=== PATIENT | male | born 1965 | race African-American/Black ===

== ENCOUNTER 2017-01-28 17:25 | Emergency (ER) | payer MEDICAID, OTHER ==
[~2017-01-28] VITALS: Ht 182.9 cm; Wt 104.5 kg
[2017-01-28 17:36] VITALS: BP 134/94
== END 2017-01-28 18:00 | disposition home or self-care (01) ==
LOC: EMS 17:37
DX: Z02.89 Encounter for other administrative examinations (principal); R07.9 Chest pain, unspecified
CPT/HCPCS: 93005; 99283

== ENCOUNTER 2017-12-18 13:30 | Inpatient (IN) | payer OTHER ==
[~2017-12-18] VITALS: Ht 195.6 cm; Wt 106.5 kg
[2017-12-18] MEDS ORDERED: CeFAZolin 1 GM/DEXTROSE 50 ML IV ONE (14:45)
[2017-12-18] MEDS ORDERED: SODIUM CHLORIDE 0.9% 1,000 ML IV ONE (14:45)
[2017-12-18 15:32] LABS: ANION GAP 7 mmol/L (8-16); CALCIUM, TOTAL 8.9 mg/dL (8.8-10.5); CARBON DIOXIDE 28 mmol/L (22-29); CHLORIDE 103 mmol/L (98-107); CREATININE 0.99 mg/dL (0.60-1.30); GLOMERULAR FILTR. RATE CALC > 60 mL/min (>60); GLUCOSE,RANDOM 87 mg/dL (70-110); POTASSIUM 3.9 mmol/L (3.5-5.1); SODIUM SERUM 138 mmol/L (136-145); UREA NITROGEN, BLOOD 9 mg/dL (7-18)
[2017-12-18 15:34] LABS: BASOPHILS % (AUTO) 0.4 % (0.0-2.0); EOSINOPHILS % (AUTO) 2.2 % (1.0-6.0); HEMATOCRIT 40.9 % (41-53); HEMOGLOBIN 13.7 g/dL (13.5-17.5); LYMPHOCYTES # (AUTO) 0.9 K/uL (1.0-4.8); LYMPHOCYTES % (AUTO) 19.8 % (22.0-44.0); MEAN CORPUSCULAR HEMOGLOBIN 29.5 pg (26.0-34.0); MEAN CORPUSCULAR HGB CONC 33.4 G/dL (31.0-37.0); MEAN CORPUSCULAR VOLUME 88 fL (80-100); MONOCYTES # (AUTO) 0.2 K/uL (0.1-1.0); MONOCYTES % (AUTO) 5.4 % (2.0-9.0); NEUTROPHILS # (AUTO) 3.1 K/uL (1.8-7.7); NEUTROPHILS % (AUTO) 72.2 % (40.0-70.0); PLATELET COUNT (AUTO) 196 K/uL (150-450); RED BLOOD CELL COUNT(AUTO) 4.63 MIL/uL (4.50-5.90); RED CELL DISTRIBUTION WIDTH 14.5 % (11.5-14.5)
[2017-12-18 15:38] LABS: ALANINE AMINOTRANSFERASE 23 U/L (12-78); ALBUMIN 3.3 g/dL (3.4-5.0); ALKALINE PHOSPHATASE 80 U/L (46-116); ASPARTATE AMINOTRANSFERASE 17 U/L (15-37); BILIRUBIN,TOTAL 0.2 mg/dL (0.1-1.0); TOTAL PROTEIN, SERUM 7.1 g/dL (6.4-8.2)
[2017-12-18 15:43] LABS: LACTIC ACID 1.6 mmol/L (0.4-2.0)
[2017-12-18] MEDS ORDERED: ONDANSETRON HCL 4 MG/2 ML VIAL IVP PRN (16:15)
[2017-12-18] MEDS ORDERED: ACETAMINOPHEN 325 MG TABLET PO PRN (16:15)
[2017-12-18] MEDS ORDERED: 0.9% SODIUM CHLORIDE 10 ML SYRINGE IVP PRN (16:15)
[2017-12-18 19:04] VITALS: BP 127/71
[2017-12-19] VITALS (7 sets, daily range): BP systolic 118–148; BP diastolic 63–96
[2017-12-19 06:36] LABS: BASOPHILS % (AUTO) 0.3 % (0.0-2.0); EOSINOPHILS % (AUTO) 4.5 % (1.0-6.0); HEMATOCRIT 39.3 % (41-53); HEMOGLOBIN 13.4 g/dL (13.5-17.5); LYMPHOCYTES # (AUTO) 1.1 K/uL (1.0-4.8); LYMPHOCYTES % (AUTO) 28.8 % (22.0-44.0); MEAN CORPUSCULAR HEMOGLOBIN 29.7 pg (26.0-34.0); MEAN CORPUSCULAR HGB CONC 34.1 G/dL (31.0-37.0); MEAN CORPUSCULAR VOLUME 87 fL (80-100); MONOCYTES # (AUTO) 0.4 K/uL (0.1-1.0); MONOCYTES % (AUTO) 9.8 % (2.0-9.0); NEUTROPHILS # (AUTO) 2.1 K/uL (1.8-7.7); NEUTROPHILS % (AUTO) 56.6 % (40.0-70.0); PLATELET COUNT (AUTO) 189 K/uL (150-450); RED BLOOD CELL COUNT(AUTO) 4.51 MIL/uL (4.50-5.90)
[2017-12-19 06:51] LABS: ALANINE AMINOTRANSFERASE 24 U/L (12-78); ALBUMIN 2.9 g/dL (3.4-5.0); ALKALINE PHOSPHATASE 60 U/L (46-116); ANION GAP 7 mmol/L (8-16); ASPARTATE AMINOTRANSFERASE 16 U/L (15-37); BILIRUBIN,TOTAL 0.2 mg/dL (0.1-1.0); CALCIUM, TOTAL 8.6 mg/dL (8.8-10.5); CARBON DIOXIDE 28 mmol/L (22-29); CHLORIDE 105 mmol/L (98-107); CREATININE 0.94 mg/dL (0.60-1.30); GLOMERULAR FILTR. RATE CALC > 60 mL/min (>60); GLUCOSE,RANDOM 93 mg/dL (70-110); POTASSIUM 3.6 mmol/L (3.5-5.1); SODIUM SERUM 140 mmol/L (136-145); TOTAL PROTEIN, SERUM 6.2 g/dL (6.4-8.2); UREA NITROGEN, BLOOD 12 mg/dL (7-18)
[2017-12-19] MEDS ORDERED: ACETAMINOPHEN 325 MG TABLET PO PRN (08:00)
[2017-12-19] MEDS ORDERED: BISACODYL 10 MG RECTAL RECTAL SUPPOSITORY PR PRN (08:00)
[2017-12-19] MEDS ORDERED: ONDANSETRON HCL 4 MG/2 ML VIAL IVP PRN (08:00)
[2017-12-19] MEDS ORDERED: HYDROCODONE/ACETAMINOPHEN 5-325 MG TABLET PO PRN ×2 (08:00)
[2017-12-19] MEDS: ENOXAPARIN SODIUM 40 MG/0.4 ML PF SYRINGE SQ SCH (08:21)
[2017-12-19] MEDS: MORPHINE SULFATE 4 MG/ML SYRINGE IVP PRN ×2 (08:21→17:33)
[2017-12-19] MEDS ORDERED: SESTAMIBI TC99M/UD ISOTOPE 1 EA INJ INJ ONE (09:55)
[2017-12-19] MEDS ORDERED: SODIUM CHLORIDE 0.9% 250 ML IV ONE (10:03)
[2017-12-19] MEDS: CLINDAMYCIN 900 MG/D5% WATER 50 ML IV SCH ×3 (10:06→17:50)
[2017-12-19 10:25] LABS: BASOPHILS % (AUTO) 0.1 % (0.0-2.0); EOSINOPHILS % (AUTO) 3.5 % (1.0-6.0); HEMATOCRIT 40.9 % (41-53); HEMOGLOBIN 13.6 g/dL (13.5-17.5); LYMPHOCYTES # (AUTO) 0.8 K/uL (1.0-4.8); LYMPHOCYTES % (AUTO) 19.4 % (22.0-44.0); MEAN CORPUSCULAR HEMOGLOBIN 29.3 pg (26.0-34.0); MEAN CORPUSCULAR HGB CONC 33.3 G/dL (31.0-37.0); MEAN CORPUSCULAR VOLUME 88 fL (80-100); MONOCYTES # (AUTO) 0.4 K/uL (0.1-1.0); MONOCYTES % (AUTO) 10.6 % (2.0-9.0); NEUTROPHILS # (AUTO) 2.7 K/uL (1.8-7.7); NEUTROPHILS % (AUTO) 66.4 % (40.0-70.0); PLATELET COUNT (AUTO) 215 K/uL (150-450); RED BLOOD CELL COUNT(AUTO) 4.64 MIL/uL (4.50-5.90); RED CELL DISTRIBUTION WIDTH 14.3 % (11.5-14.5)
[2017-12-19 10:38] LABS: ANION GAP 7 mmol/L (8-16); CARBON DIOXIDE 29 mmol/L (22-29); CHLORIDE 105 mmol/L (98-107); CHOL/HDL RATIO 2.1 (4.2-7.3); CHOLESTEROL 141 mg/dL (131-200); CREATININE 1.08 mg/dL (0.60-1.30); GLOMERULAR FILTR. RATE CALC > 60 mL/min (>60); GLUCOSE,RANDOM 75 mg/dL (70-110); HDL CHOLESTEROL 66 mg/dL (40-60); LDL CHOL (CALC.) 54 mg/dL (0-130); POTASSIUM 3.9 mmol/L (3.5-5.1); SODIUM SERUM 141 mmol/L (136-145); TRIGLYCERIDES 105 mg/dL (15-150); UREA NITROGEN, BLOOD 12 mg/dL (7-18)
[2017-12-19] MEDS: AmLODIPine BESYLATE 5 MG TABLET PO SCH (14:05)
[2017-12-19] MEDS: CLINDAMYCIN PHOS 1% 30 GM GEL TP SCH ×2 (14:06→21:25)
[2017-12-20] MEDS: CLINDAMYCIN 900 MG/D5% WATER 50 ML IV SCH ×2 (00:29→08:12)
[2017-12-20 04:27] VITALS: BP 138/88
[2017-12-20] MEDS ORDERED: AMLO-511 PO ×5 (05:12→05:35)
[2017-12-20] MEDS ORDERED: CLIN300C3 PO ×3 (05:15→13:48)
[2017-12-20] MEDS ORDERED: MUPI15CR TP ×2 (05:18→05:27)
[2017-12-20] MEDS ORDERED: HYDR-309 PO ×2 (05:21→05:25)
[2017-12-20 07:48] VITALS: BP 126/83
[2017-12-20] MEDS: MORPHINE SULFATE 4 MG/ML SYRINGE IVP PRN (08:11)
[2017-12-20] MEDS: CLINDAMYCIN PHOS 1% 30 GM GEL TP SCH (09:10)
[2017-12-20] MEDS: ENOXAPARIN SODIUM 40 MG/0.4 ML PF SYRINGE SQ SCH (09:10)
[2017-12-20 09:30] VITALS: BP 114/80
[2017-12-20] MEDS ORDERED: SESTAMIBI TC99M/UD ISOTOPE 1 EA INJ INJ ONE (10:15)
[2017-12-20 10:21] VITALS: BP 138/87
[2017-12-20] MEDS ORDERED: REGADENOSON 0.4 MG/5 ML PF SYRINGE IVP ONE ×2 (10:21→14:14)
[2017-12-20] MEDS: AmLODIPine BESYLATE 5 MG TABLET PO SCH (11:23)
[2017-12-20 11:34] VITALS: BP 143/77
[2017-12-20] MEDS ORDERED: [UNRECOGNIZED DRUG - CODE] TP (13:56)
== END 2017-12-20 14:15 | disposition home or self-care (01) | DRG 383 ==
LOC: EMS 13:31 → 5N 17:58 → 5S 12-19 18:48
PROVIDERS: ADMIT Internal Medicine; ATTEND Internal Medicine
DX: L03.113 Cellulitis of right upper limb (principal); I11.0 Hypertensive heart disease with heart failure; R07.89 Other chest pain; Z83.3 Family history of diabetes mellitus; Z82.49 Family history of ischemic heart disease and other diseases of the circulatory system; Z59.0 Homelessness; S61.431A Puncture wound without foreign body of right hand, initial encounter; X58.XXXA Exposure to other specified factors, initial encounter; Y92.89 Other specified places as the place of occurrence of the external cause; Y99.0 Civilian activity done for income or pay
CPT/HCPCS: 78452; 83605; 93005; 93017; 96365; 96366; 99285; A9500; J0690; J1650; J2270; J2785; J3490; J7030; J7050

== ENCOUNTER 2017-12-23 04:16 | Emergency (ER) | payer OTHER ==
[~2017-12-23] VITALS: Ht 185.4 cm; Wt 100.0 kg
[~2017-12-23 04:16] MED LIST: AMLO-511 PO; CLIN300C3 PO; HYDR-309 PO; MUPI15CR TP; [UNRECOGNIZED DRUG - CODE] TP
[2017-12-23 04:20] VITALS: BP 155/104
[2017-12-23] MEDS ORDERED: HYDR-4061 PO (04:31)
== END 2017-12-23 06:31 | disposition left against medical advice (07) ==
LOC: EMS 04:16
DX: Z53.21 Procedure and treatment not carried out due to patient leaving prior to being seen by health care provider (principal)

== ENCOUNTER 2018-05-08 17:56 | Inpatient (IN) | payer MEDICAID, OTHER ==
[~2018-05-08] VITALS: Ht 185.4 cm; Wt 104.0 kg
[~2018-05-08 17:56] MED LIST changes: -HYDR-309 PO; +HYDR-4061 PO; -MUPI15CR TP
[2018-05-08] MEDS ORDERED: DiphenhydrAMINE HCL 50 MG/ML VIAL IM ONE (18:00)
[2018-05-08] MEDS ORDERED: HALOPERIDOL LACTATE 5 MG/ML VIAL IM ONE (18:00)
[2018-05-08] MEDS ORDERED: LORazepam 2 MG/ML VIAL IM ONE (18:00)
[2018-05-08 21:34] LABS: BASOPHILS % (AUTO) 0.8 % (0.0-2.0); EOSINOPHILS % (AUTO) 5.3 % (1.0-6.0); HEMATOCRIT 39.5 % (41-53); HEMOGLOBIN 13.1 g/dL (13.5-17.5); LYMPHOCYTES # (AUTO) 1.9 K/uL (1.0-4.8); LYMPHOCYTES % (AUTO) 46.6 % (22.0-44.0); MEAN CORPUSCULAR HEMOGLOBIN 28.8 pg (26.0-34.0); MEAN CORPUSCULAR HGB CONC 33.1 G/dL (31.0-37.0); MEAN CORPUSCULAR VOLUME 87 fL (80-100); MONOCYTES # (AUTO) 0.3 K/uL (0.1-1.0); MONOCYTES % (AUTO) 7.2 % (2.0-9.0); NEUTROPHILS # (AUTO) 1.6 K/uL (1.8-7.7); NEUTROPHILS % (AUTO) 40.1 % (40.0-70.0); PLATELET COUNT (AUTO) 184 K/uL (150-450); RED BLOOD CELL COUNT(AUTO) 4.53 MIL/uL (4.50-5.90); RED CELL DISTRIBUTION WIDTH 14.4 % (11.5-14.5)
[2018-05-08 21:53] LABS: ANION GAP 13 mmol/L (8-16); CALCIUM, TOTAL 8.1 mg/dL (8.8-10.5); CARBON DIOXIDE 24 mmol/L (22-29); CHLORIDE 107 mmol/L (98-107); CREATININE 1.02 mg/dL (0.60-1.30); GLOMERULAR FILTR. RATE CALC > 60 mL/min (>60); GLUCOSE,RANDOM 103 mg/dL (70-110); POTASSIUM 3.3 mmol/L (3.5-5.1); SODIUM SERUM 144 mmol/L (136-145); UREA NITROGEN, BLOOD 19 mg/dL (7-18)
[2018-05-08 21:55] LABS: ALANINE AMINOTRANSFERASE 33 U/L (12-78); ALBUMIN 3.3 g/dL (3.4-5.0); ALKALINE PHOSPHATASE 68 U/L (46-116); ASPARTATE AMINOTRANSFERASE 33 U/L (15-37); BILIRUBIN,TOTAL 0.2 mg/dL (0.1-1.0); TOTAL PROTEIN, SERUM 6.5 g/dL (6.4-8.2)
[2018-05-09] MEDS ORDERED: HALOPERIDOL 5 MG TABLET PO PRN
[2018-05-09 03:26] VITALS: BP 145/62
[2018-05-09] MEDS ORDERED: PNEUMOCOCCAL VACCINE POLYVALENT 0.5 ML VIAL [PPSV23] IM ONE (03:30)
[2018-05-09 07:18] LABS: HEMOGLOBIN A1C 5.4 % (4.5-6.2)
[2018-05-09 07:26] LABS: CHOL/HDL RATIO 1.7 (4.2-7.3); FREE T4 (FREE THYROXINE) 0.94 ng/dL (0.76-1.46); THYROID STIMULATING HORMONE 0.75 uIU/mL (0.36-3.74)
[2018-05-09] MEDS ORDERED: POTASSIUM CHLORIDE 20 MEQ ER TABLET PO ONE (12:15)
[2018-05-09] MEDS ORDERED: BACITRACIN 28.4 GM OINTMENT TP PRN (12:30)
[2018-05-09] MEDS ORDERED: ONDANSETRON HCL 4 MG TABLET PO PRN (12:30)
[2018-05-09] MEDS ORDERED: IBUPROFEN 600 MG TABLET PO PRN (12:30)
[2018-05-09] MEDS ORDERED: ACETAMINOPHEN 325 MG TABLET PO PRN (12:30)
[2018-05-09] MEDS ORDERED: MAGNESIUM HYDROXIDE SUSPENSION 30 ML UDCUP PO PRN (12:30)
[2018-05-09] MEDS ORDERED: CloNIDine HCL 0.1 MG TABLET PO PRN (12:30)
[2018-05-09] MEDS ORDERED: ALBUTEROL SULFATE HFA 90 MCG/PUFF 8 GM INHALER IH PRN (12:30)
[2018-05-09] MEDS ORDERED: LOPERAMIDE HCL 2 MG CAPSULE PO PRN (12:30)
[2018-05-09] MEDS ORDERED: BENZOCAINE/MENTHOL LOZENGE MM PRN (12:30)
[2018-05-09] MEDS ORDERED: PETROLATUM,WHITE 71 GM JELLY TP PRN (12:30)
[2018-05-09] MEDS ORDERED: MAG HYDROX/AL HYDROX/SIMETH ES 30 ML SUSPENSION UDCUP PO PRN (12:30)
[2018-05-09] MEDS: LORazepam 2 MG TABLET PO PRN (13:31)
[2018-05-09 14:04] VITALS: BP 130/76
[2018-05-09] MEDS: PARoxetine HCL 10 MG TABLET PO SCH (15:03)
[2018-05-09] MEDS: ZOLPIDEM TARTRATE 10 MG TABLET PO PRN (21:17)
[2018-05-10] MEDS: PARoxetine HCL 10 MG TABLET PO SCH (09:13)
[2018-05-10] MEDS: OMEPRAZOLE 20 MG CAPSULE PO SCH (09:13)
[2018-05-10] MEDS: ASPIRIN 81 MG EC TABLET PO SCH (09:13)
[2018-05-10] MEDS: AmLODIPine BESYLATE 5 MG TABLET PO SCH (09:13)
[2018-05-10 13:29] VITALS: BP 128/68
[2018-05-10] MEDS: LORazepam 2 MG TABLET PO PRN (18:39)
[2018-05-10] MEDS: ZOLPIDEM TARTRATE 10 MG TABLET PO PRN (22:03)
[2018-05-10 22:22] VITALS: BP 151/81
[2018-05-11] MEDS: ASPIRIN 81 MG EC TABLET PO SCH (08:26)
[2018-05-11] MEDS: PARoxetine HCL 10 MG TABLET PO SCH (08:27)
[2018-05-11] MEDS: AmLODIPine BESYLATE 5 MG TABLET PO SCH (08:27)
[2018-05-11] MEDS: OMEPRAZOLE 20 MG CAPSULE PO SCH (08:27)
[2018-05-11] MEDS: LORazepam 2 MG TABLET PO PRN (08:31)
[2018-05-11 08:42] VITALS: BP 145/80
[2018-05-11] MEDS ORDERED: PARO10TA89 PO (10:47)
[2018-05-11] MEDS ORDERED: ASPI-1182 PO (10:47)
[2018-05-11] MEDS ORDERED: OMEP20 PO (10:48)
== END 2018-05-11 13:20 | disposition home or self-care (01) | DRG 751 ==
LOC: EMS 17:57 → 3EI 23:30
PROVIDERS: ADMIT Psychiatry & Neurology Child & Adolescent Psychiatry; ATTEND Psychiatry & Neurology Child & Adolescent Psychiatry
DX: F33.2 Major depressive disorder, recurrent severe without psychotic features (principal); E83.51 Hypocalcemia; R45.851 Suicidal ideations; E87.6 Hypokalemia; F10.129 Alcohol abuse with intoxication, unspecified; F41.9 Anxiety disorder, unspecified; G47.00 Insomnia, unspecified; I10 Essential (primary) hypertension; K21.9 Gastro-esophageal reflux disease without esophagitis; Z59.0 Homelessness; Z83.3 Family history of diabetes mellitus; Z91.5 Personal history of self-harm; Z79.899 Other long term (current) drug therapy; Y90.6 Blood alcohol level of 120-199 mg/100 ml
CPT/HCPCS: 83036; 84132; 84439; 84443; 96372; 99285; G0480; J1200; J1630; J2060

== ENCOUNTER 2018-06-03 22:38 | Inpatient (IN) | payer MEDICAID, OTHER ==
[~2018-06-03] VITALS: Ht 188 cm; Wt 110.0 kg
[~2018-06-03 22:38] MED LIST changes: +ASPI-1182 PO; -CLIN300C3 PO; -HYDR-4061 PO; +OMEP20 PO; +PARO10TA89 PO; -[UNRECOGNIZED DRUG - CODE] TP
[2018-06-03 23:22] LABS: BASOPHILS % (AUTO) 0.9 % (0.0-2.0); HEMATOCRIT 40.6 % (41-53); HEMOGLOBIN 13.5 g/dL (13.5-17.5); LYMPHOCYTES # (AUTO) 1.3 K/uL (1.0-4.8); LYMPHOCYTES % (AUTO) 39.7 % (22.0-44.0); MEAN CORPUSCULAR HEMOGLOBIN 29.4 pg (26.0-34.0); MEAN CORPUSCULAR HGB CONC 33.1 G/dL (31.0-37.0); MEAN CORPUSCULAR VOLUME 89 fL (80-100); MONOCYTES # (AUTO) 0.3 K/uL (0.1-1.0); MONOCYTES % (AUTO) 8.8 % (2.0-9.0); NEUTROPHILS # (AUTO) 1.4 K/uL (1.8-7.7); NEUTROPHILS % (AUTO) 43.6 % (40.0-70.0); PLATELET COUNT (AUTO) 222 K/uL (150-450); RED BLOOD CELL COUNT(AUTO) 4.58 MIL/uL (4.50-5.90); RED CELL DISTRIBUTION WIDTH 14.9 % (11.5-14.5)
[2018-06-03 23:33] LABS: ANION GAP 10 mmol/L (8-16); CALCIUM, TOTAL 8.1 mg/dL (8.8-10.5); CARBON DIOXIDE 26 mmol/L (22-29); CHLORIDE 104 mmol/L (98-107); CREATININE 1.04 mg/dL (0.60-1.30); GLOMERULAR FILTR. RATE CALC > 60 mL/min (>60); GLUCOSE,RANDOM 103 mg/dL (70-110); POTASSIUM 3.7 mmol/L (3.5-5.1); SODIUM SERUM 140 mmol/L (136-145); UREA NITROGEN, BLOOD 13 mg/dL (7-18)
[2018-06-03 23:39] LABS: ALANINE AMINOTRANSFERASE 32 U/L (12-78); ALBUMIN 3.5 g/dL (3.4-5.0); ALKALINE PHOSPHATASE 71 U/L (46-116); ASPARTATE AMINOTRANSFERASE 25 U/L (15-37); BILIRUBIN,TOTAL 0.2 mg/dL (0.1-1.0); TOTAL PROTEIN, SERUM 6.9 g/dL (6.4-8.2)
[2018-06-04] MEDS ORDERED: ZOLPIDEM TARTRATE 10 MG TABLET PO PRN (01:45)
[2018-06-04 01:57] LABS: AMPHET/METH SCREEN,URINE POSITIVE (NEGATIVE); BARBITURATE SCREEN, URINE NEGATIVE (NEGATIVE); BENZODIAZEPINES SCREEN,URINE NEGATIVE (NEGATIVE); CANNABINOID SCREEN,URINE POSITIVE (NEGATIVE); COCAINE SCREEN,URINE NEGATIVE (NEGATIVE); METHADONE SCREEN, URINE NEGATIVE (NEGATIVE); OPIATE SCREEN,URINE NEGATIVE (NEGATIVE)
[2018-06-04 02:06] LABS: PHENCYCLIDINE SCREEN,URINE NEGATIVE (NEGATIVE)
[2018-06-04] MEDS ORDERED: PNEUMOCOCCAL VACCINE POLYVALENT 0.5 ML VIAL [PPSV23] IM ONE (02:45)
[2018-06-04 02:58] VITALS: BP 132/87
[2018-06-04 08:28] VITALS: BP 155/69
[2018-06-04] MEDS: PARoxetine HCL 10 MG TABLET PO SCH (09:47)
[2018-06-04] MEDS: QUEtiapine FUMARATE 25 MG TABLET PO SCH ×2 (09:47→17:14)
[2018-06-04] MEDS ORDERED: PETROLATUM,WHITE 71 GM JELLY TP PRN (18:30)
[2018-06-04] MEDS ORDERED: BENZOCAINE/MENTHOL LOZENGE MM PRN (18:30)
[2018-06-04] MEDS ORDERED: BACITRACIN 28.4 GM OINTMENT TP PRN (18:30)
[2018-06-04] MEDS ORDERED: IBUPROFEN 600 MG TABLET PO PRN (18:30)
[2018-06-04] MEDS ORDERED: MAG HYDROX/AL HYDROX/SIMETH ES 30 ML SUSPENSION UDCUP PO PRN (18:30)
[2018-06-04] MEDS ORDERED: ACETAMINOPHEN 325 MG TABLET PO PRN (18:30)
[2018-06-04] MEDS ORDERED: LOPERAMIDE HCL 2 MG CAPSULE PO PRN (18:30)
[2018-06-04] MEDS ORDERED: DOCUSATE SODIUM 100 MG CAPSULE PO PRN (18:30)
[2018-06-04] MEDS ORDERED: MAGNESIUM HYDROXIDE SUSPENSION 30 ML UDCUP PO PRN (18:30)
[2018-06-04] MEDS ORDERED: ONDANSETRON HCL 4 MG TABLET PO PRN (18:30)
[2018-06-04] MEDS ORDERED: CloNIDine HCL 0.1 MG TABLET PO PRN (18:30)
[2018-06-04] MEDS ORDERED: OMEPRAZOLE 20 MG CAPSULE PO PRN (18:30)
[2018-06-04] MEDS ORDERED: ALBUTEROL SULFATE HFA 90 MCG/PUFF 8 GM INHALER IH PRN (18:30)
[2018-06-04 19:20] VITALS: BP 125/88
[2018-06-05 08:25] VITALS: BP 140/91
[2018-06-05] MEDS: ASPIRIN 81 MG EC TABLET PO SCH (08:31)
[2018-06-05] MEDS: PARoxetine HCL 10 MG TABLET PO SCH (08:31)
[2018-06-05] MEDS: AmLODIPine BESYLATE 5 MG TABLET PO SCH (08:31)
[2018-06-05] MEDS: QUEtiapine FUMARATE 25 MG TABLET PO SCH ×2 (08:32→18:00)
[2018-06-05] MEDS: LORazepam 2 MG TABLET PO PRN (16:30)
[2018-06-05] MEDS: HALOPERIDOL 5 MG TABLET PO PRN (16:30)
[2018-06-05 19:16] VITALS: BP 114/63
[2018-06-06 08:24] VITALS: BP 135/95
[2018-06-06] MEDS: ASPIRIN 81 MG EC TABLET PO SCH (08:52)
[2018-06-06] MEDS: AmLODIPine BESYLATE 5 MG TABLET PO SCH (08:52)
[2018-06-06] MEDS: PARoxetine HCL 10 MG TABLET PO SCH (08:52)
[2018-06-06] MEDS: QUEtiapine FUMARATE 25 MG TABLET PO SCH ×2 (08:52→17:13)
[2018-06-06 16:55] VITALS: BP 126/76
[2018-06-07 08:49] VITALS: BP 139/81
[2018-06-07] MEDS: PARoxetine HCL 10 MG TABLET PO SCH (09:10)
[2018-06-07] MEDS: QUEtiapine FUMARATE 25 MG TABLET PO SCH ×2 (09:10→16:24)
[2018-06-07] MEDS: AmLODIPine BESYLATE 5 MG TABLET PO SCH (09:10)
[2018-06-07] MEDS: ASPIRIN 81 MG EC TABLET PO SCH (09:11)
[2018-06-07] MEDS: ZIPRASIDONE HCL 20 MG CAPSULE PO SCH (16:24)
[2018-06-07 17:43] VITALS: BP 134/67
[2018-06-08] MEDS: ZIPRASIDONE HCL 20 MG CAPSULE PO SCH ×2 (07:08→17:22)
[2018-06-08 08:23] VITALS: BP 107/67
[2018-06-08] MEDS: ASPIRIN 81 MG EC TABLET PO SCH (08:46)
[2018-06-08] MEDS: AmLODIPine BESYLATE 5 MG TABLET PO SCH (08:46)
[2018-06-08] MEDS: PARoxetine HCL 10 MG TABLET PO SCH (08:46)
[2018-06-08] MEDS: QUEtiapine FUMARATE 25 MG TABLET PO SCH ×2 (08:46→17:22)
[2018-06-08 16:12] VITALS: BP 127/84
[2018-06-08] MEDS: LORazepam 2 MG TABLET PO PRN (16:15)
[2018-06-08] MEDS: HALOPERIDOL 5 MG TABLET PO PRN (16:15)
[2018-06-09] MEDS: ZIPRASIDONE HCL 20 MG CAPSULE PO SCH (07:02)
[2018-06-09 08:29] VITALS: BP 121/90
[2018-06-09] MEDS: PARoxetine HCL 10 MG TABLET PO SCH (09:29)
[2018-06-09] MEDS: QUEtiapine FUMARATE 25 MG TABLET PO SCH (09:30)
[2018-06-09] MEDS: ASPIRIN 81 MG EC TABLET PO SCH (09:30)
[2018-06-09] MEDS: AmLODIPine BESYLATE 5 MG TABLET PO SCH (09:30)
[2018-06-09] MEDS ORDERED: QUET25TA PO (13:46)
[2018-06-09] MEDS ORDERED: ZIPR20CA2 PO (13:47)
== END 2018-06-09 15:25 | disposition home or self-care (01) | DRG 754 ==
LOC: EMS 22:39 → 3EC 06-04 01:49
PROVIDERS: ADMIT Psychiatry & Neurology Child & Adolescent Psychiatry; ATTEND Psychiatry & Neurology Child & Adolescent Psychiatry
PROC: 3E02340 Introduction of Influenza Vaccine into Muscle, Percutaneous Approach (ICD-10-PCS; principal; 2018-06-04)
PROC: 3E0234Z Introduction of Serum, Toxoid and Vaccine into Muscle, Percutaneous Approach (ICD-10-PCS; 2018-06-04)
DX: F32.9 Major depressive disorder, single episode, unspecified (principal); E83.51 Hypocalcemia; R45.851 Suicidal ideations; F12.10 Cannabis abuse, uncomplicated; F41.9 Anxiety disorder, unspecified; K21.9 Gastro-esophageal reflux disease without esophagitis; I10 Essential (primary) hypertension; G47.00 Insomnia, unspecified; F17.210 Nicotine dependence, cigarettes, uncomplicated; F10.10 Alcohol abuse, uncomplicated; F15.10 Other stimulant abuse, uncomplicated; Z59.0 Homelessness; Z83.3 Family history of diabetes mellitus; Z79.899 Other long term (current) drug therapy; Z71.6 Tobacco abuse counseling; Z71.51 Drug abuse counseling and surveillance of drug abuser; Z23 Encounter for immunization
CPT/HCPCS: 87081; 90686; 90732; G0480

== ENCOUNTER 2018-07-11 12:21 | Emergency (ER) | payer MEDICAID, OTHER ==
[~2018-07-11] VITALS: Ht 190.5 cm; Wt 109.1 kg
[~2018-07-11 12:21] MED LIST changes: -AMLO-511 PO; -ASPI-1182 PO; -OMEP20 PO
[2018-07-11 14:45] LABS: BASOPHILS % (AUTO) 0.8 % (0.0-2.0); EOSINOPHILS % (AUTO) 7.5 % (1.0-6.0); HEMATOCRIT 41.5 % (41-53); HEMOGLOBIN 13.9 g/dL (13.5-17.5); LYMPHOCYTES % (AUTO) 28.8 % (22.0-44.0); MEAN CORPUSCULAR HEMOGLOBIN 29.8 pg (26.0-34.0); MEAN CORPUSCULAR HGB CONC 33.6 G/dL (31.0-37.0); MEAN CORPUSCULAR VOLUME 89 fL (80-100); MONOCYTES # (AUTO) 0.4 K/uL (0.1-1.0); MONOCYTES % (AUTO) 11.9 % (2.0-9.0); NEUTROPHILS # (AUTO) 1.7 K/uL (1.8-7.7); PLATELET COUNT (AUTO) 208 K/uL (150-450); RED BLOOD CELL COUNT(AUTO) 4.67 MIL/uL (4.50-5.90); RED CELL DISTRIBUTION WIDTH 14.5 % (11.5-14.5)
[2018-07-11 15:00] LABS: ANION GAP 3 mmol/L (8-16); CALCIUM, TOTAL 8.3 mg/dL (8.8-10.5); CARBON DIOXIDE 32 mmol/L (22-29); CHLORIDE 102 mmol/L (98-107); CREATININE 0.92 mg/dL (0.60-1.30); GLOMERULAR FILTR. RATE CALC > 60 mL/min (>60); GLUCOSE,RANDOM 83 mg/dL (70-110); POTASSIUM 4.1 mmol/L (3.5-5.1); SODIUM SERUM 137 mmol/L (136-145); UREA NITROGEN, BLOOD 17 mg/dL (7-18)
[2018-07-11 15:13] LABS: ALANINE AMINOTRANSFERASE 36 U/L (12-78); ALBUMIN 3.4 g/dL (3.4-5.0); ALKALINE PHOSPHATASE 68 U/L (46-116); ASPARTATE AMINOTRANSFERASE 23 U/L (15-37); BILIRUBIN,TOTAL 0.3 mg/dL (0.1-1.0); TOTAL PROTEIN, SERUM 6.6 g/dL (6.4-8.2)
[2018-07-11] MEDS ORDERED: AMOX TR/POT CLAV 875 MG/125 MG TABLET PO ONE (16:00)
[2018-07-11] MEDS ORDERED: SODIUM CHLORIDE 0.9% 1,000 ML IV ONE (16:15)
[2018-07-11] MEDS ORDERED: IOVERSOL 320 MG/ML 100 ML VIAL ONE (17:31)
[2018-07-11] MEDS ORDERED: SODIUM CHLORIDE 0.9% 100 ML ONE (17:31)
[2018-07-11 18:38] VITALS: BP 147/79
[2018-07-15] MEDS ORDERED: ZIPR20CA2 PO (14:01)
[2018-07-15] MEDS ORDERED: AMOX1TAB16 PO (14:02)
[2018-07-15] MEDS ORDERED: FOLI1 PO (14:03)
== END 2018-07-11 20:29 | disposition home or self-care (01) ==
LOC: EMS 12:22
DX: R22.42 Localized swelling, mass and lump, left lower limb (principal); F17.210 Nicotine dependence, cigarettes, uncomplicated; F41.9 Anxiety disorder, unspecified; F32.9 Major depressive disorder, single episode, unspecified; I10 Essential (primary) hypertension; Z59.0 Homelessness
CPT/HCPCS: 36415; 73590; 73701; 80053; 85025; 99285; J7030; J7050; Q9967

== ENCOUNTER 2018-11-03 00:07 | Inpatient (IN) | payer MEDICAID, OTHER ==
[~2018-11-03] VITALS: Ht 185.4 cm; Wt 113.6 kg
[~2018-11-03 00:07] MED LIST changes: +AMOX1TAB16 PO; +FOLI1 PO; +ZIPR20CA2 PO
[2018-11-03 00:29] LABS: GLUCOSE,POINT OF CARE 85 MG/DL (70-110)
[2018-11-03 01:05] LABS: EOSINOPHILS % (AUTO) 8.5 % (1.0-6.0); HEMATOCRIT 40.5 % (41-53); HEMOGLOBIN 13.2 g/dL (13.5-17.5); LYMPHOCYTES # (AUTO) 1.3 K/uL (1.0-4.8); LYMPHOCYTES % (AUTO) 34.6 % (22.0-44.0); MEAN CORPUSCULAR HEMOGLOBIN 28.9 pg (26.0-34.0); MEAN CORPUSCULAR HGB CONC 32.5 G/dL (31.0-37.0); MEAN CORPUSCULAR VOLUME 89 fL (80-100); MONOCYTES # (AUTO) 0.3 K/uL (0.1-1.0); MONOCYTES % (AUTO) 7.3 % (2.0-9.0); NEUTROPHILS # (AUTO) 1.9 K/uL (1.8-7.7); NEUTROPHILS % (AUTO) 48.6 % (40.0-70.0); PLATELET COUNT (AUTO) 202 K/uL (150-450); RED BLOOD CELL COUNT(AUTO) 4.55 MIL/uL (4.50-5.90); RED CELL DISTRIBUTION WIDTH 15.4 % (11.5-14.5)
[2018-11-03 01:17] LABS: ANION GAP 11 mmol/L (8-16); CALCIUM, TOTAL 8.5 mg/dL (8.8-10.5); CARBON DIOXIDE 26 mmol/L (22-29); CHLORIDE 104 mmol/L (98-107); CREATININE 0.94 mg/dL (0.60-1.30); GLOMERULAR FILTR. RATE CALC > 60 mL/min (>60); GLUCOSE,RANDOM 114 mg/dL (70-110); POTASSIUM 3.7 mmol/L (3.5-5.1); SODIUM SERUM 141 mmol/L (136-145); UREA NITROGEN, BLOOD 19 mg/dL (7-18)
[2018-11-03 01:23] LABS: ALANINE AMINOTRANSFERASE 30 U/L (12-78); ALBUMIN 3.4 g/dL (3.4-5.0); ALKALINE PHOSPHATASE 72 U/L (46-116); ASPARTATE AMINOTRANSFERASE 22 U/L (15-37); BILIRUBIN,TOTAL 0.2 mg/dL (0.1-1.0); TOTAL PROTEIN, SERUM 6.5 g/dL (6.4-8.2)
[2018-11-03 03:15] LABS: AMPHET/METH SCREEN,URINE POSITIVE (NEGATIVE); BARBITURATE SCREEN, URINE NEGATIVE (NEGATIVE); BENZODIAZEPINES SCREEN,URINE NEGATIVE (NEGATIVE); CANNABINOID SCREEN,URINE POSITIVE (NEGATIVE); COCAINE SCREEN,URINE NEGATIVE (NEGATIVE); METHADONE SCREEN, URINE NEGATIVE (NEGATIVE); OPIATE SCREEN,URINE NEGATIVE (NEGATIVE); PHENCYCLIDINE SCREEN,URINE NEGATIVE (NEGATIVE)
[2018-11-03] MEDS ORDERED: ZOLPIDEM TARTRATE 10 MG TABLET PO PRN (03:30)
[2018-11-03] MEDS ORDERED: HALOPERIDOL 5 MG TABLET PO PRN (03:30)
[2018-11-03] MEDS ORDERED: LORazepam 2 MG TABLET PO PRN (03:30)
[2018-11-03] MEDS ORDERED: LORazepam 80 MG in DEXTROSE 5%-WATER 40 ML IV PRN (05:15)
[2018-11-03] MEDS ORDERED: ZIPRASIDONE HCL 20 MG CAPSULE PO ONE (05:15)
[2018-11-03] MEDS ORDERED: LORazepam 2 MG/ML VIAL IM ONE ×2 (15:45)
[2018-11-03] MEDS ORDERED: DiphenhydrAMINE HCL 50 MG/ML VIAL IM ONE ×2 (15:45)
[2018-11-03] MEDS ORDERED: HALOPERIDOL LACTATE 5 MG/ML VIAL IM ONE ×2 (15:45)
[2018-11-03] MEDS ORDERED: ACETAMINOPHEN 500 MG TABLET PO ONE (15:45)
[2018-11-03] MEDS ORDERED: -PHARMACY VACCINE NOTE- MISC ONE (17:00)
[2018-11-03 17:03] VITALS: BP 117/84
[2018-11-03] MEDS ORDERED: MAG HYDROX/AL HYDROX/SIMETH ES 30 ML SUSPENSION UDCUP PO PRN (17:15)
[2018-11-03] MEDS ORDERED: ONDANSETRON HCL 4 MG TABLET PO PRN (17:15)
[2018-11-03] MEDS ORDERED: LOPERAMIDE HCL 2 MG CAPSULE PO PRN (17:15)
[2018-11-03] MEDS ORDERED: IBUPROFEN 400 MG TABLET PO PRN (17:15)
[2018-11-03] MEDS ORDERED: MAGNESIUM HYDROXIDE SUSPENSION 30 ML UDCUP PO PRN (17:15)
[2018-11-03] MEDS ORDERED: CloNIDine HCL 0.1 MG TABLET PO PRN (17:15)
[2018-11-03] MEDS ORDERED: NICOTINE 14 MG/24 HOUR PATCH TD PRN (17:15)
[2018-11-03] MEDS ORDERED: PETROLATUM,WHITE 28 GM JELLY TP PRN (17:15)
[2018-11-03] MEDS ORDERED: GuaiFENesin/D-METHORPHAN [SUGAR-FREE] 200-20MG/10 ML SYRUP UDCUP PO PRN (17:15)
[2018-11-03] MEDS ORDERED: DOCUSATE SODIUM 100 MG CAPSULE PO PRN (17:15)
[2018-11-03] MEDS ORDERED: ACETAMINOPHEN 325 MG TABLET PO PRN (17:15)
[2018-11-03] MEDS ORDERED: ALBUTEROL SULFATE HFA 90 MCG/PUFF 8 GM INHALER IH PRN (17:15)
[2018-11-04 06:17] VITALS: BP 113/70
[2018-11-04 08:18] LABS: BASOPHILS % (AUTO) 0.3 % (0.0-2.0); EOSINOPHILS % (AUTO) 7.1 % (1.0-6.0); HEMATOCRIT 41.9 % (41-53); HEMOGLOBIN 13.7 g/dL (13.5-17.5); LYMPHOCYTES # (AUTO) 1.1 K/uL (1.0-4.8); LYMPHOCYTES % (AUTO) 38.4 % (22.0-44.0); MEAN CORPUSCULAR HEMOGLOBIN 28.8 pg (26.0-34.0); MEAN CORPUSCULAR HGB CONC 32.6 G/dL (31.0-37.0); MEAN CORPUSCULAR VOLUME 88 fL (80-100); MONOCYTES # (AUTO) 0.2 K/uL (0.1-1.0); MONOCYTES % (AUTO) 8.1 % (2.0-9.0); NEUTROPHILS # (AUTO) 1.3 K/uL (1.8-7.7); NEUTROPHILS % (AUTO) 46.1 % (40.0-70.0); PLATELET COUNT (AUTO) 202 K/uL (150-450); RED BLOOD CELL COUNT(AUTO) 4.75 MIL/uL (4.50-5.90); RED CELL DISTRIBUTION WIDTH 15.3 % (11.5-14.5)
[2018-11-04 08:19] LABS: HEMOGLOBIN A1C 5.9 % (4.5-6.2)
[2018-11-04 08:43] LABS: ALANINE AMINOTRANSFERASE 31 U/L (12-78); ALBUMIN 3.1 g/dL (3.4-5.0); ALKALINE PHOSPHATASE 64 U/L (46-116); ANION GAP 6 mmol/L (8-16); ASPARTATE AMINOTRANSFERASE 28 U/L (15-37); BILIRUBIN,TOTAL 0.4 mg/dL (0.1-1.0); CALCIUM, TOTAL 8.9 mg/dL (8.8-10.5); CARBON DIOXIDE 29 mmol/L (22-29); CHLORIDE 104 mmol/L (98-107); CHOL/HDL RATIO 2.5 (4.2-7.3); CHOLESTEROL 188 mg/dL (131-200); CREATININE 0.83 mg/dL (0.60-1.30); GLOMERULAR FILTR. RATE CALC > 60 mL/min (>60); GLUCOSE,RANDOM 84 mg/dL (70-110); HDL CHOLESTEROL 74 mg/dL (40-60); LDL CHOL (CALC.) 88 mg/dL (0-130); POTASSIUM 4.3 mmol/L (3.5-5.1); SODIUM SERUM 139 mmol/L (136-145); THYROID STIMULATING HORMONE 1.01 uIU/mL (0.36-3.74); TOTAL PROTEIN, SERUM 5.8 g/dL (6.4-8.2); TRIGLYCERIDES 129 mg/dL (15-150); UREA NITROGEN, BLOOD 15 mg/dL (7-18)
[2018-11-04] MEDS: FLUoxetine HCL 20 MG CAPSULE PO SCH (13:08)
[2018-11-04 13:20] VITALS: BP 113/71
[2018-11-04 16:05] VITALS: BP 151/83
[2018-11-04 16:18] VITALS: BP 128/93
[2018-11-04 16:43] VITALS: BP 127/96
[2018-11-04] MEDS: ZIPRASIDONE HCL 40 MG CAPSULE PO SCH (17:00)
[2018-11-05 04:44] VITALS: BP 130/69
[2018-11-05] MEDS: ZIPRASIDONE HCL 40 MG CAPSULE PO SCH ×2 (06:45→16:38)
[2018-11-05] MEDS: FLUoxetine HCL 20 MG CAPSULE PO SCH (08:41)
[2018-11-05 16:41] VITALS: BP 135/87
[2018-11-06 05:56] VITALS: BP 147/89
[2018-11-06] MEDS: ZIPRASIDONE HCL 40 MG CAPSULE PO SCH (06:43)
[2018-11-06 08:27] VITALS: BP 122/64
[2018-11-06] MEDS: FLUoxetine HCL 20 MG CAPSULE PO SCH (09:11)
[2018-11-06] MEDS ORDERED: ZIPR40CA2 PO (14:55)
[2018-11-06] MEDS ORDERED: FLUO-191 PO (14:56)
== END 2018-11-06 16:00 | disposition home or self-care (01) | DRG 750 ==
LOC: EMS 00:08 → B3A 14:38
PROVIDERS: ADMIT Psychiatry & Neurology Psychiatry; ATTEND Psychiatry & Neurology Psychiatry
DX: F25.0 Schizoaffective disorder, bipolar type (principal); R45.851 Suicidal ideations; Z59.0 Homelessness; F41.9 Anxiety disorder, unspecified; K21.9 Gastro-esophageal reflux disease without esophagitis; I10 Essential (primary) hypertension; D72.819 Decreased white blood cell count, unspecified; F17.200 Nicotine dependence, unspecified, uncomplicated; G89.29 Other chronic pain; Y90.0 Blood alcohol level of less than 20 mg/100 ml; Z91.14 Patient's other noncompliance with medication regimen; Z91.19 Patient's noncompliance with other medical treatment and regimen; F10.10 Alcohol abuse, uncomplicated; M54.5 Low back pain; F19.10 Other psychoactive substance abuse, uncomplicated
CPT/HCPCS: 83036; 84443; 93005; 96372; 99291; G0480; J1200; J1630; J2060; J7060

== ENCOUNTER 2018-11-04 17:02 | Emergency (ER) | payer MEDICAID, OTHER ==
[~2018-11-04] VITALS: Ht 182.9 cm; Wt 90.9 kg
[~2018-11-04 17:02] MED LIST changes: -AMOX1TAB16 PO; -FOLI1 PO
[2018-11-04 19:14] LABS: BASOPHILS % (AUTO) 0.8 % (0.0-2.0); EOSINOPHILS % (AUTO) 6.6 % (1.0-6.0); HEMATOCRIT 42.1 % (41-53); HEMOGLOBIN 13.7 g/dL (13.5-17.5); LYMPHOCYTES # (AUTO) 1.2 K/uL (1.0-4.8); LYMPHOCYTES % (AUTO) 35.9 % (22.0-44.0); MEAN CORPUSCULAR HEMOGLOBIN 28.6 pg (26.0-34.0); MEAN CORPUSCULAR HGB CONC 32.6 G/dL (31.0-37.0); MEAN CORPUSCULAR VOLUME 88 fL (80-100); MONOCYTES # (AUTO) 0.3 K/uL (0.1-1.0); MONOCYTES % (AUTO) 9.7 % (2.0-9.0); NEUTROPHILS # (AUTO) 1.6 K/uL (1.8-7.7); PLATELET COUNT (AUTO) 213 K/uL (150-450)
[2018-11-04 19:22] LABS: ANION GAP 8 mmol/L (8-16); CALCIUM, TOTAL 8.8 mg/dL (8.8-10.5); CARBON DIOXIDE 27 mmol/L (22-29); CHLORIDE 101 mmol/L (98-107); CREATININE 0.87 mg/dL (0.60-1.30); GLOMERULAR FILTR. RATE CALC > 60 mL/min (>60); GLUCOSE,RANDOM 86 mg/dL (70-110); POTASSIUM 4.2 mmol/L (3.5-5.1); SODIUM SERUM 136 mmol/L (136-145); UREA NITROGEN, BLOOD 16 mg/dL (7-18)
[2018-11-04 19:28] LABS: ALANINE AMINOTRANSFERASE 33 U/L (12-78); ALBUMIN 3.2 g/dL (3.4-5.0); ALKALINE PHOSPHATASE 67 U/L (46-116); ASPARTATE AMINOTRANSFERASE 29 U/L (15-37); BILIRUBIN,TOTAL 0.3 mg/dL (0.1-1.0); LIPASE 154 U/L (73-393); TOTAL PROTEIN, SERUM 6.2 g/dL (6.4-8.2)
[2018-11-04 19:31] LABS: LACTIC ACID 0.9 mmol/L (0.4-2.0); PLATELET MORPHOLOGY COMMENT LARGE PLTS PRESENT
[2018-11-04] MEDS ORDERED: LIDOCAINE 5% TRANSDERMAL PATCH TD ONE (23:15)
[2018-11-05 00:36] VITALS: BP 122/70
[2018-11-06] MEDS ORDERED: ZIPR40CA2 PO (14:55)
[2018-11-06] MEDS ORDERED: FLUO-191 PO (14:56)
== END 2018-11-05 01:55 | disposition home or self-care (01) ==
LOC: EMS 17:03
DX: R07.89 Other chest pain (principal); I10 Essential (primary) hypertension; K21.9 Gastro-esophageal reflux disease without esophagitis; F41.9 Anxiety disorder, unspecified; F32.9 Major depressive disorder, single episode, unspecified; F17.210 Nicotine dependence, cigarettes, uncomplicated; Z79.899 Other long term (current) drug therapy
CPT/HCPCS: 36415; 71045; 80053; 83605; 83690; 84484; 85025; 93005; 99285; G0480